=== PATIENT | male | born 1965 | race Caucasian/White ===

== ENCOUNTER → 2016-06-12 | Outpatient (CLI) | payer OTHER ==
[~2016-06-12] MED LIST: ALBUAER3 INH; ASPI81TA11 PO; ATOR20TA15 PO; GABA600T PO; OMEGCAP2 PO; OMEP40CA2 PO; PROZ40CA PO; QUET1TAB9 PO; RANI150T PO; TEST200I12 IM; TEST200I13 IM; VIAG100T PO
--- NOTE | 2016-06-12 12:16 | RADRPT ---
EXAM DATE/TIME: 06/12/2016 10:06 [facility] COMPARISON: SPINE LUMBAR COMPLETE W/OBLIQ, June 10, 2014, 17:24. INDICATIONS : Lumbar spine pain MEDICAL HISTORY : None. SURGICAL HISTORY : None. ENCOUNTER: Initial ACUITY: 1 day PAIN SCORE: 4/10 LOCATION: Bilateral lspine FINDINGS: There are five non-rib bearing vertebral bodies. The vertebral bodies are in normal alignment withou t evidence of subluxation or scoliosis. The disc spaces are maintained. The posterior elements are intact without evidence of spondylolysis. The pedicles are intact. Bony mineralization is normal. No fracture is identified. CONCLUSION: Unremarkable examination of the lumbar spine. No change relative to prior study in 2014 Yousuf Levy MD on June 12, 2016 at 12:14 Board Certified Radiologist. This report was verified electronically.
== END ==
LOC: HRAD 09:45
PROVIDERS: ATTEND Family Medicine
DX: M54.30 Sciatica, unspecified side (principal)
CPT/HCPCS: 72110